=== PATIENT | male | born 1940 | race Caucasian/White ===

== ENCOUNTER 2016-07-29 09:46 | Day surgery (SDC) | payer MEDICARE ==
[~2016-07-29 09:46] MED LIST: Atropine 1 mg/10 mL (Code) Syringe ONE; DOXY100C43 PO; FLEC100T2 PO; Flumazenil 0.1 mg/mL 5 mL Inj IV ONE; GLUC100016 PO; METO25TA99 PO; MULT1CAP33 PO; Methohexital 10 mg/mL 50 mL Inj ONE; NAPR250T PO; VIT1CAPS46 PO; WARF2.5T82 PO
--- NOTE | 2016-07-29 10:21 | NUR ---
Procedure cancelled Pt. arrived and stated that he thought he had converted. Hooked to monitor and appeared in SR in 60's. BP 116/82. Confirmed with EKG. EKG also stated borderline ST elevations. Pt. asymptomatic. Dr. Hernandez notified and stated ok to send home. Left ambulatory in no distress with and all belongings.
== END 2016-07-29 23:59 | disposition home or self-care (01) ==
LOC: SOUO 09:46
PROVIDERS: ATTEND Internal Medicine Cardiovascular Disease
DX: I48.1 Persistent atrial fibrillation (principal); Z53.09 Procedure and treatment not carried out because of other contraindication